=== PATIENT | male | born 1955 | race Caucasian/White ===

== ENCOUNTER 2023-04-21 12:15 | Outpatient (REF) | payer SELFPAY | END 2023-04-21 12:16 | disposition home or self-care (01) | LOC: HO.HAP 12:15 | PROVIDERS: Visit Provider Internal Medicine | DX: Z46.1 Encounter for fitting and adjustment of hearing aid (principal); H90.3 Sensorineural hearing loss, bilateral | CPT/HCPCS: V5264 ==

== ENCOUNTER 2023-05-14 09:31 | Outpatient (REF) | payer SELFPAY | END 2023-05-14 09:32 | disposition home or self-care (01) | LOC: HO.HAP 09:31 | DX: Z13.89 Encounter for screening for other disorder (principal) ==

== ENCOUNTER 2025-06-19 14:34 | Outpatient (AMB) | payer MEDICARE, BC, SELFPAY ==
--- OUTSIDE RECORDS SUMMARY | 2025-06-19 15:15 | XMS_ITS | Encounter Summary ---
Author Organization [facility] Address [address] [place] [address] Care Team Providers Care Advanced Manufacturing Vice President Name Role Phone Alo Ramos MD Primary Care Provider [phone] Encounter Details Date Type Department Care Team (Late st Contact Info) Description 02/27/[address] [facility] - Main Lab [address] [place] [address] Derrick Rodrigues MD [address] [place] [address] Other microscopic hematuria Social History Tobacco Use Types Packs/Day Years Used Date Smoking Tobacco: Never Assessed Sex and Gender Information Value Date Recorded Sex Assigned at Not on file Legal Sex Male 10:38 AM EST Gender Identity Not on file Sexual Orientation Not on file documented as of this encounter Plan of Treatment Not on file documented as of this encounter Procedures Procedure Name Priority Date/Time Associated Diagnosis Comments AP OUTSIDE CONSULT Routine 02/22/2025 12 :00 AM EDT Other microscopic hematuria documented in this encounter Results * Anatomic pathology outside consult (02/22/2025 12:00 AM EDT) Final Diagnosis A. Urine, Voided, ([id number]): Negative for high grade urothelial carcinoma. Scant cellularity. 03/02/2025 3:22 PM EDT [facility] Clinical Information Other microscopic hematuria R31.29 Urine cytology with reflex UroVysion (AUC/SHGUC) 03/02/2025 3:22 PM EDT [facility] Gross Description A. Urine, Voided, ([id number]): Received one ThinPrep slide for cytology. 03/02/2025 3:22 PM EDT [facility] Disclaimer Unless otherwise specified, all tissue is 10% NB formalin fixed and paraffin embedded. Technical pathology services provided by [facility] at [address], [place] [address] (CLIA #[id number]/Sa sedrick Arizmendi MD, Patrol Sergeant [employer]) 03/02/2025 3:22 PM EDT [facility] Tissue Urine specimen from urethra / Unknown 02/22/2025 02/27/2025 1:55 PM EDT us Derrick Rodrigues MD LAB PATHOLOGY ORDERABLES Final Result [facility] [address] [place] [address], documented in this encounter Visit Diagnoses Diagnosis Other microscopic hematuria documented in this encounter Care Teams Advanced Manufacturing Vice President Relationship Specialty Start Date End Date Alo Ramos MD [address] [place] [phone] PCP - General Internal Medicine 11/22/24 documented as of this encounter
== END 2025-06-19 14:43 | disposition home or self-care (01) ==
LOC: HO.HMGAL 14:34
PROVIDERS: Visit Provider Registered Nurse Emergency
DX: J30.89 Other allergic rhinitis (principal)
CPT/HCPCS: 95117; 95165

== ENCOUNTER 2025-07-26 10:34 | Outpatient (AMB) | payer MEDICARE, BC, SELFPAY | END 2025-07-26 10:35 | disposition home or self-care (01) | LOC: HO.HMGAL 10:34 | PROVIDERS: PCP Internal Medicine; Visit Provider Registered Nurse Emergency | DX: J30.89 Other allergic rhinitis (principal) | CPT/HCPCS: 95117; 95165 ==

== ENCOUNTER 2025-08-23 11:11 | Outpatient (AMB) | payer MEDICARE, BC, SELFPAY ==
--- OUTSIDE RECORDS SUMMARY | 2025-08-23 15:14 | XMS_ITS | Encounter Summary ---
Author Organization [facility] Address [address] [place] [address] Care Team Providers Care Still Worker Helper Name Role Phone Alo Ramos MD Primary Care Provider [phone] Encounter Details Date Type Department Care Team (Late st Contact Info) Description 02/27/2025 Lab Requisition [facility] - Main Lab [address] [place] [address] Derrick Rodrigues MD [address] [facility] [address] [place] [address] Other microscopic hematuria Social History [...] AM EDT) Final Diagnosis A. Urine, Voided, ([id number]): Negative for high grade urothelial carcinoma. Scant cellularity. 03/02/2025 3:22 PM EDT [facility] Clinical Information Other microscopic hematuria R31.29 Urine cytology with reflex UroVysion (AUC/SHGUC) 03/02/2025 3:22 PM EDT [facility] Gross Description A. Urine, Voided, ([id number]): Received one ThinPrep slide for cytology. 03/02/2025 3:22 PM EDT [facility] Disclaimer Unless otherwise specified, all tissue is 10% NB formalin fixed and paraffin embedded. Technical pathology services provided by [facility] at [address], [place] [address] (CLIA #[id number]/Sa sedrick Arizmendi MD, Farm Adviser) 03/02/2025 3:22 PM EDT [facility] Tissue Urine specimen from urethra / Unknown 02/22/2025 02/27/2025 1:55 PM EDT us Derrick Rodrigues MD LAB PATHOLOGY ORDERABLES Final Result [facility] [address] [place] [address], documented in this encounter Visit Diagnoses Diagnosis Other microscopic hematuria documented in this encounter Care Teams Still Worker Helper Relationship Specialty Start Date End Date Alo Ramos MD [address] [place] [phone] PCP - General Internal Medicine 11/22/24 documented as of this encounter
--- OUTSIDE RECORDS SUMMARY | 2025-08-23 15:14 | XMS_ITS | Data Portability ---
Author Organization [facility], [facility] Address [address] [place] [address] Care Team Providers Care Clinical Services Specialist Name Role Phone TRISTIN COTTER Referring Provider TRISTIN COTTER Primary Care Provider Assessment Encounter Date Assessment Date Assessment LastModified by Organization Details LastModified Time 01/17/2025 01/17/2025 Assessment: Pt demonstrates good progress with ther ex without pain. Plan: Continue rx and progress as tolerated towards (I) strengthening HEP and management of sxs Not available 01/17/2025 14:45:59 01/20/2025 01/20/2025 Assessment: Pt demonstrates steady ther-x progressions with no increase in sx. Plan: Continue rx and progress as tolerated towards (I) strengthening HEP and management of sxs [email or web address] Not available 01/20/2025 14:33:05 01/24/2025 01/24/2025 Assessment: Pt demonstrates good progress with ther ex progression and stair climbing Plan: Continue rx and progress as tolerated towards (I) strengthening HEP and management of sxs over next 2 sessions Not available 01/24/2025 14:02:25 01/31/2025 01/31/2025 Assessment: Pt demonstrates good progress with ther ex progression and stair climbing Plan: Continue rx and progress as tolerated towards (I) strengthening HEP and management of sxs over next 2 sessions Not available 01/31/2025 14:01:04 02/07/2025 02/07/2025 Assessment: Pt demonstrates good progress with ther ex progression and stair climbing Plan: Continue rx and progress as tolerated towards (I) strengthening HEP and management of sxs over next 2 sessions [email or web address] Not available 02/07/2025 10:50:46 Plan of Treatment Reminders Order Date Submit Date Provider Last Modified By Organization Details Last Modified Time Details Appointments None record ed. Lab None record ed. Referral None record ed. Procedures None record ed. Surgeries None record ed. Imaging None record ed. Medication Orders None record ed. Patient TargetsNo targets recorded. Patient InstructionsNo instructions recorded. Reason for Referral None Reported. 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 Procedures Surgical History Date Name Laterality Status Provider Name and Address Organization Details Recorded Time 5 42831: Therapeutic Activities (1:1) completed Humberto Bear, PT [address] [facility], [place], [address], [facility] 02/07/2025 10:50:46 5 70243 Therapeutic Exercise (1:1) completed Humberto Bear PT [address] [facility], [place], [address], [facility] 02/07/2025 10:50:46 5 62627: Therapeutic Activities (1:1) completed Humberto Bear PT [address] [facility], [place], [address], [facility] 01/31/2025 14:49:05 5 21606 Therapeutic Exercise (1:1) completed Humberto Bear PT [address], [place], [address], [facility] 01/31/2025 14:48:57 5 58554 Therapeutic Exercise (1:1) completed Humberto Bear PT [address], [place], [address], [facility] 01/22/2025 12:23:29 5 28533 Therapeutic Exercise (1:1) completed Jose Brumfield PTA [address], [place], [address], [facility] 01/19/2025 16:28:29 5 38832 Therapeutic Exercise (1:1) completed Humberto Bear, PT [address], [place], [address], [facility] 01/17/2025 14:46:21 5 59171 Therapeutic Exercise (1:1) completed Jose Brumfield SILK SCREEN PROCESSOR [address], [place], [address], [facility] 01/13/2025 14:37:33 5 07205 Therapeutic Exercise (1:1) completed Humberto Bear, PT [address], [place], [address], [facility] 01/10/2025 11:51:48 5 88046 Therapeutic Exercise (1:1) completed Jose Brumfield PTA [address], [place], [address], [facility] 01/06/2025 15:24:34 5 20895 Therapeutic Exercise (1:1) completed Humberto Bear, PT [address], [place], [address], [facility] 01/03/2025 17:18:35 5 56270: Low complexity PT Eval completed Humberto Bear, PT [address], [place], [address], [facility] 01/03/2025 17:18:53 5 G8417 BMI Above Upper Parameters, F/U Documented completed Humberto Bear PT [address], [place], [address], [facility] 01/03/2025 17:19:18 5 G8427 Current Medication Documented completed Humberto Bear, PT [address], [place], [address], [facility] 01/03/2025 17:19:14 Imaging Results None recorded. Procedure Notes None recorded. Medical Equipment None Reported. Allergies No known drug allergies Medications Name Sig Start Date Stop Date Status Note LastModified by Organization Details LastModified Time doxycycline hyclate 100 mg capsule TAKE 1 CAPSULE BY MOUTH TWICE DAILY WITH FOOD AND A GLASS OF WATER FOR 5 DAYS 12/12 completed Not Available Not Available Not Available atorvastati n 20 mg tablet TAKE 1 TABLET DAILY active Not Available Not Available No t Available divalproex 250 mg tablet,alphonse yed release TAKE 3 TABLETS BY MOUTH THREE TIMES DAILY active Not Available Not Available No t Available azithromyci n 250 mg tablet TAKE 2 TABLETS BY MOUTH ON DAY 1 THEN TAKE 1 TABLET DAILY ON DAYS 2-5. active Not Available Not Available No t Available amoxicillin 875 mg tablet TAKE 1 TABLET BY MOUTH TWICE DAILY FOR 7 DAYS active Not Available Not Available No t Available pseudoephed rine-guaife nesin ER 80-700 mg tablet,exte nded release 1-2 tabs every 4-6 hours as needed for pain 12/12 completed Statu s: 'Curr ent'; Not Available Not Available Not Available divalproex ER 500 mg tablet,exte nded release 24 hr TAKE 2 TABLETS TWICE A DAY active Not Available Not Available No t Available gabapentin 300 mg capsule TAKE 1 CAPSULE DAILY AT BEDTIME active Not Available Not Available No t Available hydrocortis one 2.5 % topical cream APPLY TOPICALLY THREE TIMES DAILY NEEDED FOR SKIN IRRITATIO N FOR 14 DAYS 12/12 completed Not Available Not Available Not Available hydroxyzine HCl 25 mg tablet TAKE 1 TABLET BY MOUTH 3 TO 4 TIMES PER DAY FOR 5 DAYS NEEDED FOR ITCHING 12/12 completed Not Available Not Available Not Available methylpredn isolone 4 mg tablets in a dose pack FOLLOW PACKAGE DIRECTION S active Not Available Not Available No t Available doxycycline hyclate 100 mg tablet TAKE 1 TABLET BY MOUTH TWICE DAILY FOR 10 DAYS active Not Available Not Available No t Available Adderall Adderall 15MG Tablet 04/10 completed Statu s: 'Disc ontin ued'; Not Available Not Available Not Available levetiracet am 1,000 mg tablet TAKE 1 AND 1/2 TABLETS TWICE DAILY active Not Available Not Available No t Available cholecalcif jere (vitamin D3) 125 mcg (5,000 unit) tablet Take by oral route. active Not Available Not Available No t Available Vitals None Recorded Social History Question Answer Notes LastModified by [employer] Details LastModified Time Tobacco Smoking Status Never Smoker DILMA soriano [place] - [facility] 12/12/2024 09:25:51 Have You Ever Been Counseled For Unhealthy Alcohol Use? No Information not available 12/12/2024 What Is Your Relationship Status? Information not available 12/12/2024 Sex: Unknown Functional Status Question Answer Note LastModified by [employer] Details LastModified Time How many times per week do you consume alcohol? Less than 1 time per week Information not available 12/12/2024 Do you use any illicit or recreational drugs? No Information not available 12/12/2024 Do you or have you ever used any other forms of tobacco or nicotine? No Information not available 12/12/2024 What is your level of alcohol consumption? Occasional Information not available 12/12/2024 Mental Status None recorded. Family History Nothing Reported. Medical History Condition Response Allergies/Hayfever N Coronary Artery Disease N Anxiety/Depression N Emphysema N Thyroid Problems N COPD N Pacemaker N Kidney/Bladder Problems N Anemia N Vascular Disease N Heart Trouble N Gastrointestinal Disease N Heart Attack ([place]) N Diabetes N Autoimmune disease N Bleeding Disorder N Orthotics N Arthritis Y Seizures/Epilepsy Y Blood Clot N AIDS/HIV N Congestive Heart Failure (CHF) N Acid Reflux (GERD) N Cancer N Stroke N Asthma N Peripheral Vascular Disease N Sleep Apnea Y Hepatitis N Heart Disease N Rheumatoid Arthritis N Arrhythmia N Pulmonary Embolism N Fibromyalgia N Hypertension N Osteoporosis N Past Encounters Encounter ID Performer Location Encounter Start Date Encounter Closed Date Diagnosis/Indication Diagnosis SNOMED-CT Code Diagnosis ICD10 Code Diagnosis IMO Codes Diagnosis Note [id number] Catherine Aguirre PA-C [facility] [address] [place] [address] 02/16/2024 13:58:49 03/08/2024 08:52:11 Right Achilles tendinitis [id number] 41293 M76.61 [id number] Juan José Funez, JESSICA [facility] [address] [place] [address] 12/12/2024 09:11:48 12/28/2024 06:34:14 History of bilateral total knee replacement [id number] 678962 Z96.653 [id number] Humberto Bear , PT [facility] [address] [place] [address] 01/04/2025 14:48:30 01/04/2025 15:49:14 Pain of knee region [id number] M25.561 M25.562 G89.29 [id number] Jose Brumfield, SILK SCREEN PROCESSOR [facility] [address] [place] [address] 01/06/2025 14:21:23 01/06/2025 15:31:51 Pain of knee region [id number] M25.561 M25.562 G89.29 [id number] Humberto Bear , PT [facility] [address] [place] [address] 01/11/2025 13:18:26 01/11/2025 15:01:04 Pain of knee region 4622500409 M25.561 M25.562 G89.29 [id number] Jose Brumfield, SILK SCREEN PROCESSOR [facility] [address] [place] [address] 01/13/2025 13:16:07 01/16/2025 07:18:39 Pain of knee region 4399498204 M25.561 M25.562 G89.29 [id number] Humberto Bear , PT [facility] [address] [place] [address] 01/17/2025 13:50:34 01/17/2025 14:22:28 Pain of knee region 6035390593 M25.561 M25.562 G89.29 [id number] Jose Brumfield, SILK SCREEN PROCESSOR [facility] [address] [place] [address] 01/20/2025 13:38:34 01/20/2025 13:53:57 Pain of knee region 1407564013 M25.561 M25.562 G89.29 [id number] Humberto Bear , PT [facility] [address] [place] [address] 01/24/2025 12:54:22 01/24/2025 13:34:44 Pain of knee region 6625006837 M25.561 M25.562 G89.29 [id number] Humberto Bear , PT [facility] [address] [place] [address] 01/31/2025 13:48:47 01/31/2025 15:07:30 Pain of knee region 1944704125 M25.561 M25.562 G89.29 [id number] Humberto Bear , PT [facility] [address] [place] [address] 02/07/2025 13:52:34 02/07/2025 14:58:39 Pain of knee region 8936974882 M25.561 M25.562 G89.29 [id number] Health Concerns Section Related Observation LastModified by Organization Detai ls LastModified Time None Recorded Concern Status LastModified by Organization Details LastModified Time None Recorded Advance Directives Directive None Recorded Payers Insurance Date Sequence Insurance Name Policy Number Policy Flores Covered Member ID Flores Member ID Guarantor Name 02/07/2025 2 [place]) [id number] Vicente Capone [id number] Vicente Capone 02/01/2025 1 MEDIC[place]: [employer] Vicente Capone [id number] Vicente Capone Notes Date Note Type Note Provider Name and Address Organization Details Recorded Time 01/17/2025 text/html Pt reports feeling better and has been compliant with his HEP, minimal soreness after last visit. Humberto Bear, PT [address], [place], [address], [facility] 01/17/2025 14:46:34 01/20/2025 text/html Pt reports feeling great with no pain or soreness currently or after last visit. Jose Brumfield, SILK SCREEN PROCESSOR [address], [place], [address], [facility] 01/20/2025 14:33:25 01/24/2025 text/html Pt reports that he is feeling really good and reports no pain. Humberto Bear, PT [address], [place], [address], [facility] 01/24/2025 14:03:13 01/31/2025 text/html Pt reports that he is feeling really good and reports no pain. Humberto Bear, PT [address], [place], [address], [facility] 01/31/2025 14:59:20 02/07/2025 text/html Pt reports that he is feeling really good and reports no pain. Humberto Bear, PT [address], [place], [address], [facility] 02/07/2025 14:42:40
--- OUTSIDE RECORDS SUMMARY | 2025-08-23 15:14 | XMS_ITS | Clinical Summary ---
Author Organization [address] [facility] Address [address] [place] [address] Phone Care Team Providers Care Turner And Former Automatic Name Role Phone Alo Ramos MD Primary Care Provider [phone] Social History Tobacco Use Types Packs/Day Years Used Date Smoking Tobacco: Never Assessed Sex and Gender Information Value Date Recorded Sex Assigned at Not on file Legal Sex Male 10:38 AM EST Gender Identity Not on file Sexual Orientation Not on file Plan of Treatment Health Maintenance Due Date Last Done Comments DTaP,Tdap,and Td Vaccines (1 - Tdap) 1974 Pneumococcal Vaccine: 50+ Ye ars (1 of 1 - PCV) 2005 Zoster Vaccines (1 of 2) 2005 Depression Screening 11/02/2024 Abdominal Aortic Aneurysm (A AA) Screen 2024 Cholesterol Screening (Lipid Panel) 2024 Falls Risk Assessment 2024 Hepatitis C Screening 2024 Medicare Annual Wellness Visit 2024 Social Influencers of Health Screening 2024 COVID-19 Vaccine ( - 2023-2 5 season) 2025 Influenza Vaccine (#1) 2025 RSV Immunization Adult Patie nts (1 - 1-dose 75+ series) 2030 Colorectal Cancer Screening: Colonoscopy 12/07/2034 12/07/2024 HIB Vaccines Aged Out No longer eligi ble based on patient's age to complete this topic HPV Vaccines Aged Out No longer eligi ble based on patient's age to complete this topic Hepatitis A Vaccines Aged Out No long er eligible based on patient's age to complete this topic Hepatitis B Vaccines Aged Out No long er eligible based on patient's age to complete this topic IPV Vaccines Aged Out No longer eligi ble based on patient's age to complete this topic MMR Vaccines Aged Out No longer eligi ble based on patient's age to complete this topic Meningococcal ACWY Vaccine Aged Out N o longer eligible based on patient's age to complete this topic Meningococcal B Vaccine Aged Out No l onger eligible based on patient's age to complete this topic RSV Immunization Patients Un jennifer 20 months Aged Out No longer eligible b ased on patient's age to complete this topic Varicella Vaccines Aged Out No longer eligible based on patient's age to complete this topic Procedures Procedure Name Priority Date/Time Associated Diagnosis Comments COLONOSCOPY Routine 12/07/2024 2:25 PM EST from Last 3 Months or Most Recently Relevant to Health Maintenance Results * COLONOSCOPY (12/07/2024 2:25 PM EST) Anatomical Region Laterality Modality Endoscopy us [facility] Provider GI~PROCEDURE ORDERABLES F inal Result from Last 3 Months or Most Recently Relevant to Health Maintenance Insurance MEDICARE [facility] Care Teams Turner And Former Automatic Relationship Specialty Start Date End Date Alo Ramos MD [address] [place] [phone] PCP - General Internal Medicine 11/22/24
== END 2025-08-23 11:13 | disposition home or self-care (01) ==
LOC: HO.HMGAL 11:11
PROVIDERS: PCP Internal Medicine; Visit Provider Registered Nurse Emergency
DX: J30.89 Other allergic rhinitis (principal)
CPT/HCPCS: 95117; 95165